=== PATIENT | female | born 1990 | race Caucasian/White ===

== ENCOUNTER 2017-03-31 16:38 | Emergency (ER) | payer BC ==
[~2017-03-31 16:38] MED LIST: ALPRAZOLAM PO; BACTRIM DS TABL1 TAB PO; DARVOCET-N 1001 TAB PO; DICLOFENAC PO; DICYCLOMINE HCL20 MG PO; FLEXERIL10 MG PO; IBUPROFEN PO; MULTIVITAMIN W-1 TAB PO; PRILOSEC PO; REGLAN PO; RHINOCORT AQUA8.6 GM; SINGULAIR PO; SYNTHROID25 MCG; TYLOX 5/500 CAP1 CAP PO; VICODIN PO; YASMIN 28 TABLE1 TAB PO; [UNRECOGNIZED DRUG - OTHER] PO
== END 2017-03-31 18:02 | disposition home or self-care (01) ==
LOC: SED 16:38
DX: N76.4 Abscess of vulva (principal); Z88.5 Allergy status to narcotic agent; Z88.8 Allergy status to other drugs, medicaments and biological substances
CPT/HCPCS: 10060; 56405; 99283

== ENCOUNTER 2017-04-02 15:02 | Emergency (ER) | payer BC | END 2017-04-02 15:49 | disposition home or self-care (01) | LOC: SED 15:02 | DX: Z48.00 Encounter for change or removal of nonsurgical wound dressing (principal); N76.4 Abscess of vulva; Z88.0 Allergy status to penicillin; Z88.1 Allergy status to other antibiotic agents; R03.0 Elevated blood-pressure reading, without diagnosis of hypertension | CPT/HCPCS: 99282 ==